=== PATIENT | female | born 1955 | race Caucasian/White ===

== ENCOUNTER → 2017-04-04 | Outpatient (CLI) | payer OTHER ==
[~2017-04-04] VITALS: Ht 165.1 cm; Wt 56.7 kg
[~2017-04-04] MED LIST: EPIPEN 2-P0.3 MG/0.3 IM; METFORMIN HCL500 MG PO; PEPCID40 MG PO; VENTOLIN HFA 1818 GM INH; VITAMIN D1000 UNI1 PO; ZYRTEC10 M5 PO
== END | disposition home or self-care (01) ==
LOC: GI 07:16
DX: Z09 Encounter for follow-up examination after completed treatment for conditions other than malignant neoplasm (principal); Z87.19 Personal history of other diseases of the digestive system; E11.9 Type 2 diabetes mellitus without complications; Z98.890 Other specified postprocedural states; K21.9 Gastro-esophageal reflux disease without esophagitis
CPT/HCPCS: 62110; 62900